=== PATIENT | female | born 1995 | race Caucasian/White ===

== ENCOUNTER 2019-07-22 09:38 | Emergency (ER) | payer OTHER, MEDICAID, SELFPAY ==
--- NOTE | 2019-07-22 09:55 | DI.RAD.S_ITS ---
PROCEDURE: XR CHEST 1V INDICATIONS: chest pain TECHNIQUE: One view of the chest was acquired. COMPARISON: None. FINDINGS: Surgical changes and devices: None. Lungs and pleura: There are indistinct peripheral opacities in the left lung base. No pleural effusions or pneumothorax. Mediastinum: Mediastinal contours appear normal. Heart size is normal. Bones and chest wall: No suspicious bony lesions. Overlying soft tissues appear unremarkable. IMPRESSION: 1. Indistinct peripheral left basilar opacities are nonspecific but suggestive of pneumonia. Dictated by: Sudarshan Lomax M.D. on 07/22/2019 at 10:08 Approved by: Sudarshan Lomax M.D. on 07/22/2019 at 10:09
[2019-07-22 09:57] VITALS: BP 120/89; PULSE 124; RESP 22; TEMP 37.1; O2SAT 99; BMI 22.1
--- NOTE | 2019-07-22 10:08 | ED_ITS ---
HPI - Chest Pain General Chief Complaint: Chest Pain Stated Complaint: Pain in lt side Time Seen by Provider: 07/22/19 10:08 Source: patient Mode of arrival: ambulatory Limitations: no limitations History of Present Illness HPI narrative: This is a 24-year-old female who comes to the emergency department with complaint of left-sided chest pain that radiates a little bit towards her abdomen. Patient has not had any known fevers. She has had a little bit chills but states she feels like she is going to get ?dope sick soon? she has been using methamphetamines and injecting heroin recently. Patient has not felt short of breath. She has not had any nausea or vomiting. She has not had any diarrhea or constipation, she denies any new urinary issues but states she has been told she has bladder infections in the past. She denies any other medical issues but does have some chronic low back issues. Patient denies any prior surgeries. Denies any allergies to medications. Related Data Previous Rx's Medication Instructions Recorded doxycycline hyclate 100 mg PO BID #14 tab 07/22/19 Allergies Allergy/AdvReac Type Severity Reaction Status Date / Time No Known Drug Allergies Allergy Verified 07/22/19 10:01 Review of Systems Review of Systems ROS Unobtainable: All systems reviewed & are unremarkable except as noted in HPI and below Constitutional Constitutional: Denies chills, Denies fever(s), Denies lethargy, Denies malaise and Denies weakness Cardiovascular Cardiovascular: Reports chest pain, Denies diaphoresis, Denies syncope, Denies rapid heart rate, Denies irregular heart rhythm, Denies lightheadedness, Denies radiating jaw, neck or arm pain, Denies palpitations, Denies dyspnea, Denies dyspnea on exertion and Denies orthopnea Respiratory Respiratory: Denies change in phlegm color, Denies chest congestion, Denies cough, Denies dyspnea, Denies dyspnea on exertion and Denies wheezing Gastrointestinal Gastrointestinal: Denies abdominal pain, Denies change in bowel habits, Denies diarrhea, Denies nausea and Denies vomiting Genitourinary Genitourinary: Denies hematuria, Reports urinary frequency, Denies flank pain, Denies urinary incontinence, Denies urinary hesitancy and Denies urinary urgency Musculoskeletal Musculoskeletal: Denies back pain Integumentary/Breasts Skin/Breast: Denies non-healing lesions, Denies rash and Denies other (abscess) Neurologic Neurologic: Denies syncope and Denies weakness Endocrine Endocrine: Denies palpitations Allergic/Immunologic Allergic/Immunologic: Denies wheezing [facility] Social History Smoking Status: Current every day smoker Social History Smoking Status: Current every day smoker Exam Narrative Exam Narrative: GENERAL: Alert and oriented x three, thin female in no acute distress. HEENT: Head normocephalic, atraumatic, EOMI, pupils reactive, face symmetric, moist mucous membranes NECK: Supple, full range of motion CARDIOVASCULAR: Regular rate and rhythm without murmurs, rubs or gallops. No JVD. RESPIRATORY: Breath sounds equal bilaterally, no wheezes rales or rhonchi. ABDOMEN: Soft, nontender. Normoactive bowel sounds all 4 quadrants. No guarding or rebound, rigidity, no mass : No CVA tenderness EXTREMITIES: Normal range of motion, no clubbing or edema. Neurovascularly intact NEUROLOGICAL: Cranial nerves II through XII grossly intact. Moving all extremities SKIN: Warm, dry, no petechiae, no rashes. Patient has several areas of scabbing on her face and upper extremities, there is no erythema or signs of infection surrounding. No Janeway lesions, no Osler nodes. Initial Vital Signs Initial Vital Signs: Vital Signs Temperature 98.7 F 07/22/19 09:57 Pulse Rate 124 H 07/22/19 09:57 Respiratory Rate 22 07/22/19 09:57 Blood Pressure 120/89 07/22/19 09:57 Pulse Oximetry 99 07/22/19 09:57 Course Orders Ordered: ED Orders 07/22/19 11:20 Lactate (Lactic Acid) Stat 07/22/19 12:40 Blood Culture Stat Discontinued Medications Doxycycline Hyclate (Vibramycin) 100 mg PO NOW ONE Stop: 07/22/19 11:52 Last Admin: 07/22/19 12:06 Dose: 100 mg Documented by: CLIFFORD Ketorolac Tromethamine (Toradol) 30 mg IM NOW ONE Stop: 07/22/19 12:14 Last Admin: 07/22/19 12:46 Dose: 30 mg Documented by: CLIFFORD Vital Signs Vital signs: Vital Signs - 8 hr 07/22/19 11:44 07/22/19 12:30 07/22/19 12:58 Temperature Pulse Rate 107 H 113 H 112 H Respiratory Rate 19 13 16 Blood Pressure Blood Pressure [Left Arm] 116/65 103/62 103/62 Pulse Oximetry 100 99 97 07/22/19 13:29 Temperature 98.8 F Pulse Rate 99 H Respiratory Rate 18 Blood Pressure 109/64 Blood Pressure [Left Arm] Pulse Oximetry 99 MDM - Chest Pain Lab Data Attestation: I reviewed the patient's lab results. Result diagrams: 07/22/19 10:08 07/22/19 10:08 Labs: Lab Results 07/22/19 07/22/19 07/22/19 Range/Units 10:08 10:08 10:08 WBC 11.1 H (4.5-11.0) X10^3/uL RBC 4.47 (4.0-5.2) X10^6/uL Hgb 12.0 (12.0-16.0) g/dL Hct 35.5 L (36-46) % MCV 79.5 L (80-100) fL MCH 26.8 (26-34) PG MCHC 33.8 (30-36) % RDW 16.2 H (11.6-14.8) % Plt Count 241 (150-400) X10^3/uL Neut % (Auto) 76.2 H (50-75) % Lymph % (Auto) 16.8 L (25-40) % Hardin % (Auto) 6.3 (3-14) % Eos % (Auto) 0.2 L (2-4) % Baso % (Auto) 0.5 (0-2) % Neut # (Auto) 8500 H (3800-7919) /uL Lymph # (Auto) 1900 (5648-9563) /uL Hardin # (Auto) 700 (0-900) /uL Eos # (Auto) 0 (0-450) /uL Baso # (Auto) 100 (0-100) /uL PT 13.7 H (10.1-12.7) SECONDS INR 1.2 (0.9-1.3) APTT 37 H (26.4-36.2) SECONDS Sodium 140 (137-145) mmol/L Potassium 3.6 (3.4-5.1) mmol/L Chloride 101 (98-107) mmol/L Carbon Dioxide 30 (22-32) mmol/L BUN 12 (7-17) mg/dL Creatinine 0.60 (0.52-1.04) mg/dL Estimated GFR > 60.0 (>60) mL/min BUN/Creatinine Ratio 20.0 (6-22) Glucose 108 H (70-100) mg/dL Lactate (0.7-2.1) mmol/L Calcium 9.2 (8.4-10.2) mg/dL Total Bilirubin 0.4 (0.2-1.3) mg/dL AST 17 (14-36) IU/L ALT < 6 L (9-52) IU/L Alkaline Phosphatase 77 (38-126) U/L Total Creatine Kinase 26 L (30-135) U/L CK-MB (CK-2) TNP CK-MB (CK-2) Rel Index TNP Troponin I < 0.012 (0.01-0.034) ng/mL Total Protein 8.3 H (6.3-8.2) g/dL Albumin 4.2 (3.5-5.0) g/dL Globulin 4.1 (1.7-4.1) g/dL Albumin/Globulin Ratio 1.0 (1.0-2.8) Lipase 34 (23-300) U/L 07/22/19 Range/Units 11:20 WBC (4.5-11.0) X10^3/uL RBC (4.0-5.2) X10^6/uL Hgb (12.0-16.0) g/dL Hct (36-46) % MCV (80-100) fL MCH (26-34) PG MCHC (30-36) % RDW (11.6-14.8) % Plt Count (150-400) X10^3/uL Neut % (Auto) (50-75) % Lymph % (Auto) (25-40) % Hardin % (Auto) (3-14) % Eos % (Auto) (2-4) % Baso % (Auto) (0-2) % Neut # (Auto) (6834-5543) /uL Lymph # (Auto) (8706-8011) /uL Hardin # (Auto) (0-900) /uL Eos # (Auto) (0-450) /uL Baso # (Auto) (0-100) /uL PT (10.1-12.7) SECONDS INR (0.9-1.3) APTT (26.4-36.2) SECONDS Sodium (137-145) mmol/L Potassium (3.4-5.1) mmol/L Chloride (98-107) mmol/L Carbon Dioxide (22-32) mmol/L BUN (7-17) mg/dL Creatinine (0.52-1.04) mg/dL Estimated GFR (>60) mL/min BUN/Creatinine Ratio (6-22) Glucose (70-100) mg/dL Lactate 1.6 (0.7-2.1) mmol/L Calcium (8.4-10.2) mg/dL Total Bilirubin (0.2-1.3) mg/dL AST (14-36) IU/L ALT (9-52) IU/L Alkaline Phosphatase (38-126) U/L Total Creatine Kinase (30-135) U/L CK-MB (CK-2) CK-MB (CK-2) Rel Index Troponin I (0.01-0.034) ng/mL Total Protein (6.3-8.2) g/dL Albumin (3.5-5.0) g/dL Globulin (1.7-4.1) g/dL Albumin/Globulin Ratio (1.0-2.8) Lipase (23-300) U/L Imaging Data Chest x-ray: Radiologist's impression: [address] [address] XRay Report Signed Patient: Serg Haro [facility]#: [id number] : 1995Acct:[id number] Age/Sex: / FDate of Service: 07/22/19 Loc: ED Accession Number: [id number] Procedure: XR chest 1V Ordering Provider: Valeria Thorpe D.O. PROCEDURE: XR CHEST 1V INDICATIONS: chest pain TECHNIQUE: One view of the chest was acquired. COMPARISON: None. FINDINGS: Surgical changes and devices: None. Lungs and pleura: There are indistinct peripheral opacities in the left lung base. No pleural effusions or pneumothorax. Mediastinum: Mediastinal contours appear normal. Heart size is normal. Bones and chest wall: No suspicious bony lesions. Overlying soft tissues appear unremarkable. IMPRESSION: 1. Indistinct peripheral left basilar opacities are nonspecific but suggestive of pneumonia. Dictated by: Sudarshan Lomax M.D. on 07/22/2019 at 10:08 Approved by: Sudarshan Lomax M.D. on 07/22/2019 at 10:09 ECG Data Attestation: I personally reviewed and interpreted this ECG as follows: Interpretation: Sinus rhythm with a rate of 79 P are 152 QRS 85 and QTC of [address] changes. MDM Narrative Medical decision making narrative: Discussed with patient shows possible pneumonia, she is very mildly elevated white count of 11, she has a RDW of 16.2 with neutrophils at 76%. CMP shows a glucose of 108 with normal electrolytes and renal function, normal lactate, troponin is negative with normal LFTs and lipase. Discussed with patient she could potentially have pneumonia will go ahead and treat her with antibiotics. She does not have any obvious exam fin dings for an endocarditis but does have some chest pain and we discussed getting blood cultures as a precaution. Patient did not want wait around for urine sample. Her heart rate is improving while she is here, she has been afebrile. We discussed that we will contact her if there is any changes with her blood cultures. Patient states that she did leave us a good phone number. Discharge Plan Departure Patient Disposition: Home Clinical Impression: Pneumonia Discharge Date/Time: 07/22/19 13:29 Instructions: DI for Pneumonia -- Adult Activity Restrictions/Additional Instructions: Follow up with primary care in the next 3-5 days for recheck. Blood cultures were sent today, these take 24-48 hours to return. You should expect a phone call if they are positive. Take antibiotics until gone, there is a coupon included to assist to financially. You may take ibuprofen up to 800 mg every 8 hours as needed for pain, you may also take Tylenol up to a 1000 mg every 8 hours as needed for pain Make sure drinking plenty of fluids. Return to the emergency department if her having worsening symptoms, lightheadedness, passing out, worsening chest pain, shortness of breath, persistent vomiting, black or bloody stools or other new or concerning symptoms. Prescriptions: New doxycycline hyclate 100 mg tablet 100 mg PO BID Qty: 14 RF: 0
[2019-07-22 10:18] LABS: Add Manual Diff / Slide Review NO; Basophils Absolute Auto 100 /uL (0-100); Basophils Percent Auto 0.5 % (0-2); Eosinophils Absolute Auto 0 /uL (0-450); Eosinophils Percent Auto 0.2 % (2-4); Hematocrit 35.5 % (36-46); Lymphocytes Absolute Auto 1900 /uL (1100-4500); Lymphocytes Percent Auto 16.8 % (25-40); Mean Corpuscular HGB Conc 33.8 % (30-36); Mean Corpuscular Hemoglobin 26.8 PG (26-34); Mean Corpuscular Volume 79.5 fL (80-100); Monocytes Absolute Auto 700 /uL (0-900); Monocytes Percent Auto 6.3 % (3-14); Neutrophils Absolute Auto 8500 /uL (1500-7000); Neutrophils Percent Auto 76.2 % (50-75); Platelet Count 241 X10^3/uL (150-400); Red Blood Cell Count 4.47 X10^6/uL (4.0-5.2); Red Cell Distribution Width 16.2 % (11.6-14.8); White Blood Cell Count 11.1 X10^3/uL (4.5-11.0)
[2019-07-22 10:24] LABS: INR 1.2 (0.9-1.3); Prothrombin Time 13.7 SECONDS (10.1-12.7)
[2019-07-22 10:26] LABS: PTT Partial Thromboplastin Tim 37 SECONDS (26.4-36.2)
[2019-07-22 10:29] LABS: Albumin 4.2 g/dL (3.5-5.0); Alkaline Phosphatase 77 U/L (38-126); Aspartate Aminotransferase 17 IU/L (14-36); Bilirubin Total 0.4 mg/dL (0.2-1.3); Blood Urea Nitrogen 12 mg/dL (7-17); Calcium 9.2 mg/dL (8.4-10.2); Carbon Dioxide 30 mmol/L (22-32); Chloride 101 mmol/L (98-107); Creatine Kinase 26 U/L (30-135); Estimated Glomerular Filt Rate > 60.0 mL/min (>60); Globulin 4.1 g/dL (1.7-4.1); Glucose 108 mg/dL (70-100); HEMOLYSIS < 15 (0-50); Lipase 34 U/L (23-300); Potassium 3.6 mmol/L (3.4-5.1); Sodium 140 mmol/L (137-145); Total Protein 8.3 g/dL (6.3-8.2)
[2019-07-22 10:30] VITALS: BP 114/70; PULSE 114; RESP 22; O2SAT 99
[2019-07-22 10:32] LABS: Alanine Aminotransferase < 6 IU/L (9-52)
[2019-07-22 10:40] LABS: Troponin I < 0.012 ng/mL (0.01-0.034)
--- NOTE | 2019-07-22 11:41 | PC.NURSE ---
pt used meth at 0600 before arriving to [facility]. used heroin iv at 11pm last night.
[2019-07-22 11:44] VITALS: BP 116/65; PULSE 107; RESP 19; O2SAT 100
[2019-07-22] MEDS: DOXYCYCLINE HYCLATE 100 MG TABLET PO (12:06)
[2019-07-22 12:24] LABS: Lactate (Lactic Acid) 1.6 mmol/L (0.7-2.1)
[2019-07-22 12:30] VITALS: BP 103/62; PULSE 113; RESP 13; O2SAT 99
[2019-07-22] MEDS: KETOROLAC 60 MG/2 ML VIAL 30 MG IM (12:46)
[2019-07-22 12:58] VITALS: BP 103/62; PULSE 112; RESP 16; O2SAT 97
[2019-07-22 13:29] VITALS: BP 109/64; PULSE 99; RESP 18; TEMP 37.1; O2SAT 99
[2019-07-24 10:45] LABS: Acinetobacter baumannii Not Detected (Not Detect); Candida albicans Not Detected (Not Detect); Candida glabrata Not Detected (Not Detect); Candida krusei Not Detected (Not Detect); Candida parapsilosis Not Detected (Not Detect); Candida tropicalis Not Detected (Not Detect); E. coli Not Detected (Not Detect); Enterobacter cloacae complex Not Detected (Not Detect); Enterobacteriaceae species Not Detected (Not Detect); Enterococcus species Not Detected (Not Detect); Haemophilus influenzae Not Detected (Not Detect); Listeria monocytogenes Not Detected (Not Detect); Neisseria meningitidis Not Detected (Not Detect); Proteus species Not Detected (Not Detect); Pseudomonas aeruginosa Not Detected (Not Detect); Serratia marcescens Not Detected (Not Detect); Staphylococcus species Not Detected (Not Detect); Streptococcus agalactiae (Gr B Not Detected (Not Detect); Streptococcus pneumonia Not Detected (Not Detect); Streptococcus pyogenes (Gr A) Not Detected (Not Detect); Streptococcus species Detected (Not Detect)
== END 2019-07-22 13:29 | disposition home or self-care (01) ==
PROVIDERS: Emergency Provider Emergency Medicine
DX: J18.9 Pneumonia, unspecified organism (principal)
CPT/HCPCS: 36415; 71045; 80053; 82550; 83605; 83690; 84484; 85025; 85610; 85730; 87040; 87077; 87150; 87205; 93005; 96372; 99283; 99285; J1885

== ENCOUNTER 2019-11-12 13:53 | Emergency (ER) | payer OTHER, MEDICAID, SELFPAY ==
[2019-11-12 13:55] VITALS: BP 113/70; PULSE 129; RESP 24; TEMP 36.5; BMI 18.8
--- NOTE | 2019-11-12 14:02 | DI.RAD.S_ITS ---
PROCEDURE: XR CHEST 2V INDICATIONS: worsening pneumonia TECHNIQUE: 2 views of the chest were acquired. COMPARISON: [facility], CR, XR CHEST 1V, 07/22/2019, 9:58. FINDINGS: Surgical changes and devices: None. Lungs and pleura: A moderate-sized area of consolidation is identified within the right lung. No effusion or pneumothorax is evident. Mediastinum: Mediastinal contours are normal. Heart size is normal. Bones and chest wall: No suspicious bony abnormalities. Soft tissues appear unremarkable. IMPRESSION: Right basilar pneumonia. Dictated by: Sudarshan Ac M.D. on 11/12/2019 at 13:30 Approved by: Sudarshan Ac M.D. on 11/12/2019 at 13:34
[2019-11-12] MEDS: SODIUM CHLORIDE 0.9% 1,000 ML 1000 ML IV ×2 (14:17→15:46)
--- NOTE | 2019-11-12 14:19 | PC.NURSE ---
Discussed w/ patient her recent stopping of iv heroin and meth. Pt states she has been clean for 1-2 weeks. No s/s of active withdrawl at this time. States she has significant life stressors w/ boyfriend going to [employer] for > 1 years. Would like some resources. [facility] [facility] [employer] consulted.
[2019-11-12 14:21] LABS: Add Manual Diff / Slide Review NO; Basophils Absolute Auto 100 /uL (0-100); Basophils Percent Auto 0.5 % (0-2); Eosinophils Absolute Auto 100 /uL (0-450); Eosinophils Percent Auto 0.6 % (2-4); Hematocrit 30.1 % (36-46); Hemoglobin 9.7 g/dL (12.0-16.0); Lymphocytes Absolute Auto 3100 /uL (1100-4500); Lymphocytes Percent Auto 20.6 % (25-40); Mean Corpuscular HGB Conc 32.3 % (30-36); Mean Corpuscular Hemoglobin 23.6 PG (26-34); Mean Corpuscular Volume 73.1 fL (80-100); Monocytes Absolute Auto 1100 /uL (0-900); Monocytes Percent Auto 7.6 % (3-14); Neutrophils Absolute Auto 10500 /uL (1500-7000); Neutrophils Percent Auto 70.7 % (50-75); Platelet Count 482 X10^3/uL (150-400); Red Blood Cell Count 4.12 X10^6/uL (4.0-5.2); Red Cell Distribution Width 18.8 % (11.6-14.8); White Blood Cell Count 14.8 X10^3/uL (4.5-11.0)
[2019-11-12 14:29] LABS: INR 1.3 (0.9-1.3); Prothrombin Time 15.1 SECONDS (10.1-12.7)
[2019-11-12 14:31] LABS: PTT Partial Thromboplastin Tim 38 SECONDS (26.4-36.2)
[2019-11-12 14:32] LABS: Lactate (Lactic Acid) 1.4 mmol/L (0.7-2.1)
[2019-11-12 14:36] LABS: Alanine Aminotransferase 16 IU/L (<35); Albumin 3.7 g/dL (3.5-5.0); Albumin Globulin Ratio 0.8 (1.0-2.8); Alkaline Phosphatase 115 U/L (38-126); Aspartate Aminotransferase 22 IU/L (14-36); BUN Creatinine Ratio 33.3 (6-22); Bilirubin Total 0.3 mg/dL (0.2-1.3); Blood Urea Nitrogen 20 mg/dL (7-17); Carbon Dioxide 29 mmol/L (22-32); Chloride 103 mmol/L (98-107); Estimated Glomerular Filt Rate > 60.0 mL/min (>60); Globulin 4.6 g/dL (1.7-4.1); Glucose 98 mg/dL (70-100); HEMOLYSIS < 15 (0-50); Lipase 47 U/L (23-300); Potassium 3.8 mmol/L (3.4-5.1); Sodium 140 mmol/L (137-145); Total Protein 8.3 g/dL (6.3-8.2)
--- NOTE | 2019-11-12 14:37 | ED_ITS ---
HPI - URI/Sore Throat General Chief Complaint: Upper Respiratory Symptoms Stated Complaint: pneumonia Time Seen by Provider: 11/12/19 14:20 Source: patient Mode of arrival: Ambulatory Limitations: no limitations History of Present Illness HPI Narrative: Patient is a 24-year-old female with recent pneumonia treated w ith amoxicillin finished 1 week ago she states that the cough has gotten worse. She continues to have some body ache. She does admit to smoking methamphetamine, heroin and tobacco her last use was methamphetamine last. She has had some body aches. She also says that she is just getting over a UTI. She denies any shortness of breath or heart palpitations she is noted to be tachycardic in the emergency department. Related Data Previous Rx's Medication Instructions Recorded levofloxacin [Levaquin] 750 mg PO DAILY #5 tab 11/12/19 Allergies Allergy/AdvReac Type Severity Reaction Status Date / Time No Known Drug Allergies Allergy Verified 11/12/19 14:01 Review of Systems Review of Systems Narrative: GENERAL: Denies chills, fatigue, malaise, fever, sweats, travel HEENT: Denies sinus pain, ear pain, sore throat, difficulty swallowing, neck pain RESPIRATORY: See HPI CARDIOVASCULAR: Denies chest pain, palpitations, orthopnea, edema GASTROINTESTINAL: Denies nausea, vomiting, abdominal pain, diarrhea, constipation, melena. : Denies dysuria, frequency, incontinence, hematuria, urinary retention, flank pain. MUSCULOSKELETAL: Denies weakness, joint pain, or bony pain SKIN: No rash, no erythema, no pruritus NEUROLOGIC: Denies weakness, dizziness, headache, numbness, change in speech, confusion PSYCHIATRIC: No concerning psychosocial issues. 12 point review of systems is negative except for those stated above and HPI Patient History Medical History Patient denies medical problems (Acute) Social History Smoking Status: Current every day smoker substance use type: heroin and methamphetamine Smoking Status: Current every day smoker alcohol intake frequency: 0-2 drinks per day Substance Use Type: marijuana Exam Initial Vital Signs Initial Vital Signs: Vital Signs Temperature 97.7 F 11/12/19 13:55 Pulse Rate 129 H 11/12/19 13:55 Respiratory Rate 24 11/12/19 13:55 Blood Pressure 113/70 11/12/19 13:55 GENERAL: Thin young female and in no acute distress. HEENT: Head atraumatic,EOMI, pupils reactive, face symmetric, moist mucous membranes CARDIOVASCULAR: Tachycardic regular no murmurs RESPIRATORY: Breath sounds equal bilaterally, no wheezes rales or rhonchi. ABDOMEN: Soft, nontender. Normoactive bowel sounds all 4 quadrants. No guarding or rebound. EXTREMITIES: Normal range of motion, no clubbing or edema. Neurovascularly intact NEUROLOGICAL: Alert and oriented x4.Normal gait and speech. SKIN: Warm, dry, no laceration, no petechiae, no rashes or lesions. Course Orders Ordered: ED Orders 11/12/19 14:02 XR chest 2V Stat EKG-12 Lead Stat RT Consult Eval and Treat Now 11/12/19 14:12 Complete Blood Count AUTO DIFF Stat Comprehensive Metabolic Panel Stat Lactate (Lactic Acid) Stat Lipase Stat Partial Thromboplastin Time Stat Procalcitonin Stat Prothrombin Time INR Stat 11/12/19 14:18 Consult to [facility] - Hand Stoner Stat 11/12/19 14:38 Blood Culture Stat 11/12/19 14:48 Influenza A & B (PCR) Stat 11/12/19 16:15 Urine Culture Stat Urine Drug Screen, Rapid Stat Urine Microscopic Stat Discontinued Medications Sodium Chloride (Normal Saline 0.9%) 1,000 mls @ 1,000 mls/hr IV BOLUS ONE Stop: 11/12/19 15:01 Last Infusion: 11/12/19 15:22 Dose: 0 mls/hr Documented by: Admin: 11/12/19 14:17 Dose: 1,000 mls/hr Documented by: JUAN Sodium Chloride (Normal Saline 0.9%) 1,000 mls @ 1,000 mls/hr IV BOLUS ONE Stop: 11/12/19 16:25 Last Infusion: 11/12/19 16:45 Dose: 0 mls/hr Documented by: Admin: 11/12/19 15:46 Dose: 1,000 mls/hr Documented by: AMARA Levofloxacin (Levaquin) 750 mg PO NOW ONE Stop: 11/12/19 16:53 Last Admin: 11/12/19 17:04 Dose: 750 mg Documented by: SCANAPO Vital Signs Vital signs: Vital Signs - 8 hr 11/12/19 13:55 11/12/19 14:52 11/12/19 16:37 Temperature 97.7 F Pulse Rate 129 H 115 H 113 H Respiratory Rate 24 20 Blood Pressure 113/70 Blood Pressure [Right Arm] 126/89 Pulse Oximetry 100 100 11/12/19 16:46 11/12/19 17:05 Temperature Pulse Rate 111 H Respiratory Rate Blood Pressure 109/60 Blood Pressure [Right Arm] 96/47 L Pulse Oximetry MDM - URI/Sore Throat Lab Data Attestation: I reviewed the patient's lab results. Result diagrams: 11/12/19 14:12 11/12/19 14:12 Labs: Lab Results 11/12/19 11/12/19 11/12/19 Range/Units 14:12 14:12 14:12 WBC 14.8 H (4.5-11.0) X10^3/uL RBC 4.12 (4.0-5.2) X10^6/uL Hgb 9.7 L (12.0-16.0) g/dL Hct 30.1 L (36-46) % MCV 73.1 L (80-100) fL MCH 23.6 L (26-34) PG MCHC 32.3 (30-36) % RDW 18.8 H (11.6-14.8) % Plt Count 482 H (150-400) X10^3/uL Neut % (Auto) 70.7 (50-75) % Lymph % (Auto) 20.6 L (25-40) % [place] % (Auto) 7.6 (3-14) % Eos % (Auto) 0.6 L (2-4) % Baso % (Auto) 0.5 (0-2) % Neut # (Auto) 15244 H (6395-3173) /uL Lymph # (Auto) 3100 (3817-2942) /uL [place] # (Auto) 1100 H (0-900) /uL Eos # (Auto) 100 (0-450) /uL Baso # (Auto) 100 (0-100) /uL PT 15.1 H (10.1-12.7) SECONDS INR 1.3 (0.9-1.3) APTT 38 H (26.4-36.2) SECONDS Sodium (137-145) mmol/L Potassium (3.4-5.1) mmol/L Chloride (98-107) mmol/L Carbon Dioxide (22-32) mmol/L BUN (7-17) mg/dL Creatinine (0.52-1.04) mg/dL Estimated GFR (>60) mL/min BUN/Creatinine Ratio (6-22) Glucose (70-100) mg/dL Lactate (0.7-2.1) mmol/L Calcium (8.4-10.2) mg/dL Total Bilirubin (0.2-1.3) mg/dL AST (14-36) IU/L ALT (<35) IU/L Alkaline Phosphatase (38-126) U/L Total Protein (6.3-8.2) g/dL Albumin (3.5-5.0) g/dL Globulin (1.7-4.1) g/dL Albumin/Globulin Ratio (1.0-2.8) Lipase (23-300) U/L Procalcitonin < 0.05 (<0.5) ng/mL Urine RBC (0-5/HPF) Urine WBC (0-5/HPF) Ur Squamous Epith Cells (0-5/HPF) Ur Renal Epithelial Cell (0-1/HPF) Amorphous Sediment Urine Bacteria (None) Urine Mucus (Negative) Ur Culture Indicated? U Morph 300 ng/mL cutoff (Negative) Ur Oxycodone Screen (Negative) Urine Methadone Screen (Negative) Ur Barbiturates Screen (Negative) U Tricyclic Antidepress (Negative) Ur Phencyclidine Scrn (Negative) Ur Amphetamines Screen (Negative) U Methamphetamines Scrn (Negative) Ur MDMA Scrn (Ecstasy) (Negative) U Benzodiazepines Scrn (Negative) Urine Cocaine Screen (Negative) U Marijuana (THC) Screen (Negative) Influenza A (RT-PCR) (NEGATIVE) Influenza B (RT-PCR) (NEGATIVE) 11/12/19 11/12/19 11/12/19 Range/Units 14:12 14:12 14:48 WBC (4.5-11.0) X10^3/uL RBC (4.0-5.2) X10^6/uL Hgb (12.0-16.0) g/dL Hct (36-46) % MCV (80-100) fL MCH (26-34) PG MCHC (30-36) % RDW (11.6-14.8) % Plt Count (150-400) X10^3/uL Neut % (Auto) (50-75) % Lymph % (Auto) (25-40) % [place] % (Auto) (3-14) % Eos % (Auto) (2-4) % Baso % (Auto) (0-2) % Neut # (Auto) (7243-7821) /uL Lymph # (Auto) (3111-0126) /uL [place] # (Auto) (0-900) /uL Eos # (Auto) (0-450) /uL Baso # (Auto) (0-100) /uL PT (10.1-12.7) SECONDS INR (0.9-1.3) APTT (26.4-36.2) SECONDS Sodium 140 (137-145) mmol/L Potassium 3.8 (3.4-5.1) mmol/L Chloride 103 (98-107) mmol/L Carbon Dioxide 29 (22-32) mmol/L BUN 20 H (7-17) mg/dL Creatinine 0.60 (0.52-1.04) mg/dL Estimated GFR > 60.0 (>60) mL/min BUN/Creatinine Ratio 33.3 H (6-22) Glucose 98 (70-100) mg/dL Lactate 1.4 (0.7-2.1) mmol/L Calcium 9.0 (8.4-10.2) mg/dL Total Bilirubin 0.3 (0.2-1.3) mg/dL AST 22 (14-36) IU/L ALT 16 (<35) IU/L Alkaline Phosphatase 115 (38-126) U/L Total Protein 8.3 H (6.3-8.2) g/dL Albumin 3.7 (3.5-5.0) g/dL Globulin 4.6 H (1.7-4.1) g/dL Albumin/Globulin Ratio 0.8 L (1.0-2.8) Lipase 47 (23-300) U/L Procalcitonin (<0.5) ng/mL Urine RBC (0-5/HPF) Urine WBC (0-5/HPF) Ur Squamous Epith Cells (0-5/HPF) Ur Renal Epithelial Cell (0-1/HPF) Amorphous Sediment Urine Bacteria (None) Urine Mucus (Negative) Ur Culture Indicated? U Morph 300 ng/mL cutoff (Negative) Ur Oxycodone Screen (Negative) Urine Methadone Screen (Negative) Ur Barbiturates Screen (Negative) U Tricyclic Antidepress (Negative) Ur Phencyclidine Scrn (Negative) Ur Amphetamines Screen (Negative) U Methamphetamines Scrn (Negative) Ur MDMA Scrn (Ecstasy) (Negative) U Benzodiazepines Scrn (Negative) Urine Cocaine Screen (Negative) U Marijuana (THC) Screen (Negative) Influenza A (RT-PCR) Flu a negative (NEGATIVE) Influenza B (RT-PCR) Flu b negative (NEGATIVE) 11/12/19 11/12/19 Range/Units 16:15 16:15 WBC (4.5-11.0) X10^3/uL RBC (4.0-5.2) X10^6/uL Hgb (12.0-16.0) g/dL Hct (36-46) % MCV (80-100) fL MCH (26-34) PG MCHC (30-36) % RDW (11.6-14.8) % Plt Count (150-400) X10^3/uL Neut % (Auto) (50-75) % Lymph % (Auto) (25-40) % [place] % (Auto) (3-14) % Eos % (Auto) (2-4) % Baso % (Auto) (0-2) % Neut # (Auto) (2080-9746) /uL Lymph # (Auto) (6767-5941) /uL [place] # (Auto) (0-900) /uL Eos # (Auto) (0-450) /uL Baso # (Auto) (0-100) /uL PT (10.1-12.7) SECONDS INR (0.9-1.3) APTT (26.4-36.2) SECONDS Sodium (137-145) mmol/L Potassium (3.4-5.1) mmol/L Chloride (98-107) mmol/L Carbon Dioxide (22-32) mmol/L BUN (7-17) mg/dL Creatinine (0.52-1.04) mg/dL Estimated GFR (>60) mL/min BUN/Creatinine Ratio (6-22) Glucose (70-100) mg/dL Lactate (0.7-2.1) mmol/L Calcium (8.4-10.2) mg/dL Total Bilirubin (0.2-1.3) mg/dL AST (14-36) IU/L ALT (<35) IU/L Alkaline Phosphatase (38-126) U/L Total Protein (6.3-8.2) g/dL Albumin (3.5-5.0) g/dL Globulin (1.7-4.1) g/dL Albumin/Globulin Ratio (1.0-2.8) Lipase (23-300) U/L Procalcitonin (<0.5) ng/mL Urine RBC 1-5/hpf (0-5/HPF) Urine WBC 30-100/hpf H (0-5/HPF) Ur Squamous Epith Cells 1-5 /hpf (0-5/HPF) Ur Renal Epithelial Cell 0-1/hpf (0-1/HPF) Amorphous Sediment 1+ Urine Bacteria Many (>30) H (None) Urine Mucus 2+ H (Negative) Ur Culture Indicated? Specimen cultured U Morph 300 ng/mL cutoff Negative (Negative) Ur Oxycodone Screen Negative (Negative) Urine Methadone Screen Negative (Negative) Ur Barbiturates Screen Negative (Negative) U Tricyclic Antidepress Negative (Negative) Ur Phencyclidine Scrn Negative (Negative) Ur Amphetamines Screen Positive H (Negative) U Methamphetamines Scrn Positive H (Negative) Ur MDMA Scrn (Ecstasy) Negative (Negative) U Benzodiazepines Scrn Negative (Negative) Urine Cocaine Screen Negative (Negative) U Marijuana (THC) Screen Negative (Negative) Influenza A (RT-PCR) (NEGATIVE) Influenza B (RT-PCR) (NEGATIVE) Point of Care Testing Test Results Negative Urine Dip Bedside Urine Glucose Negative Bedside Urine Bilirubin - Negative Bedside Urine Ketone +/- 5 Urine Specific Vernal 1.020 Bedside Urine Occult Blood +/- Bedside Urine pH 6.0 Bedside Urine Protein + 30 Bedside Urine Urobilinogen +/- 1mg Bedside Urine Nitrite + Positive Bedside Urine Leukocytes + 70 Esterase Imaging Data Chest x-ray: Radiologist's Impression: PROCEDURE: XR CHEST 2V INDICATIONS: worsening pneumonia TECHNIQUE: 2 views of the chest were acquired. COMPARISON: [facility], CR, XR CHEST 1V, 07/22/2019, 9:58. FINDINGS: Surgical changes and devices: None. Lungs and pleura: A moderate-sized area of consolidation is identified within the right lung. No effusion or pneumothorax is evident. Mediastinum: Mediastinal contours are normal. Heart size is normal. Bones and chest wall: No suspicious bony abnormalities. Soft tissues appear unremarkable. IMPRESSION: Right basilar pneumonia. Dictated by: Sudarshan Ac M.D. on 11/12/2019 at 13:30 MDM Narrative Medical decision making narrative: Patient is in sinus tachycardia on the monitor. Her heart rate does improve with IV fluids. Previous visits do show that she is persistently tachycardic with heart rate above 100 she is positive for methamphetamine and amphetamine in her urine. She is also noted to have a UTI along with right-sided pneumonia. She overall appears well eating and drinking in the emergency department ambulating to the restroom without difficulty normal lactic acid. Will put her on Levaquin which should cover for pneumonia and UTI. She is not hypoxic, she it does not have any difficulty breathing. At this time all outpatient follow-up. Discharge Plan Departure Patient Disposition: Home Clinical Impression: Pneumonia Qualifiers: Pneumonia type: due to unspecified organism Laterality: right Lung location: lower lobe of lung Qualified Code(s): J18.9 - Pneumonia, unspecified organism UTI (urinary tract infection) Qualifiers: Urinary tract infection type: acute cystitis Hematuria presence: with hematuria Qualified Code(s): N30.01 - Acute cystitis with hematuria Discharge Date/Time: 11/12/19 17:05 Instructions: DI for Pneumonia -- Adult Activity Restrictions/Additional Instructions: *You have been diagnosed with pneumonia nad UTI *What to do: Increase fluid intake, rest, stop doing drugs *Continue to take medications as directed Levaquin 750 mg once a day for 5 days start tomorrow *Follow up with your primary care provider in 2-3 days *Return to ER if you should have increasing cough shortness of breath confusion fever not controlled or any new, worsening or concerning symptoms Prescriptions: New levofloxacin [Levaquin] 750 mg tablet 750 mg PO DAILY Qty: 5 RF: 0
--- NOTE | 2019-11-12 14:42 | CM.SWNOTE ---
Discharge Planning/Care Management REAL ESTATE ATTORNEY - Dental Chairside Assistant Assessment Start: 11/12/19 14:35 Freq: Status: Active Protocol: Document 11/12/19 14:36 DPL (Rec: 11/12/19 14:42 DPL [id number]) REAL ESTATE ATTORNEY/Dental Chairside Assistant Assessment Start date 11/12/19 Visit Start Time 02:25 End date 11/12/19 Visit End Time 02:45 Total time Care Management spent on 20 patient visit-in minutes Presenting Problem Pt presents to the ED with respiratory symptoms. 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 She also has multiple, observable superficial cuts on her arms, indicative of chronic cutting bx. Precipitating Event(s) Respiratory illness. Her boyfriend is also going to intermediate soon, which prompted her wanting mental health support. Current Behavioral Health Provider(s) None Include Facility, Provider, Ph. # Psych. Hx Mental Health and Chemical Hx chemical dependency, mental Dependency health details not known. Support System(s) Friend, boyfriend. School/Work Unemployed Orientation (Person/Place/Time) Pt is oriented X3. Affect Calm, pleasant. Thought Content - Specify/Describe Congruent and appropriate. Obsessions, Delusions, Hallucinations Thought Processes (Plmihqc-Flvazvnv-Znze Appropriate Ajthcqkg-Yxezvwmx-Gzfjctyruv- Feslsrmvozmfcz-Fbuomvd-Tzskqqsylmeg- Thought Blocking) Speech (Lamgdq-Qzgv-Igjpcdn-Rapid-Soft- Normal Loud-Pressured) Motor (Rnpmmn-Krxvepjxl-Ajqi-Other) Normal Insight (Present-Partially Present- Present Impaired) Judgement (Intact-Impaired) Intact Impulse Control (Adequate-Impaired) Intact Memory (Ey[place]ag-[place]bo[place]-Xnafcz, Intact Impaired-Intact) Concentration (Intact-Impaired) Intact Attention (Intact-Impaired) Intact Behavior (Appropriate-Inappropriate) Appropriate Suicidal Ideation (Plan) No Homicidal Ideation (Plan) No Intervention REAL ESTATE ATTORNEY provided contact and program info for [facility] in Friday. RA Plan D/C home. Pt will f/u on her own re: [facility].
[2019-11-12 14:52] VITALS: BP 126/89; PULSE 115; RESP 20; O2SAT 100
[2019-11-12 14:53] LABS: Procalcitonin < 0.05 ng/mL (<0.5)
[2019-11-12 15:31] LABS: Influenza A - CEPHEID Flu A NEGATIVE (NEGATIVE); Influenza B - CEPHEID Flu B NEGATIVE (NEGATIVE)
[2019-11-12 16:37] VITALS: PULSE 113; O2SAT 100
[2019-11-12 16:40] LABS: UR Morphine/Opiate cutoff 300 Negative (Negative); Ur Creatinine Normal (Normal); Ur Specific Gravity Normal (Normal); Urine Amphetamines Positive (Negative); Urine Barbiturates Negative (Negative); Urine Benzodiazepines Negative (Negative); Urine Cocaine Negative (Negative); Urine MDMA Negative (Negative); Urine Methadone Negative (Negative); Urine Methamphetamines Positive (Negative); Urine Oxycodone Negative (Negative); Urine Phencyclidine Negative (Negative); Urine Tetrahydrocannabinol Negative (Negative); Urine Tricyclic Antidepressant Negative (Negative); Urine pH Normal (Normal)
[2019-11-12 16:45] LABS: RBC Urine 1-5/HPF (0-5/HPF); Renal Epithelial Cells Urine 0-1/HPF (0-1/HPF); Squamous Epithelial Cell Urine 1-5 /HPF (0-5/HPF); WBC Urine 30-100/HPF (0-5/HPF)
[2019-11-12 16:46] VITALS: BP 96/47
[2019-11-12 16:46] LABS: Amorphous Sediment Urine 1+; Bacteria Urine Many (>30); Culture Indicated Urine Specimen Cultured; Mucus Urine 2+ (Negative)
[2019-11-12] MEDS: levoFLOXacin 250 MG TABLET 750 MG PO (17:04)
[2019-11-12 17:05] VITALS: BP 109/60; PULSE 111
== END 2019-11-12 17:05 | disposition home or self-care (01) ==
PROVIDERS: Emergency Provider Emergency Medicine
DX: J18.9 Pneumonia, unspecified organism (principal); N30.01 Acute cystitis with hematuria; R00.0 Tachycardia, unspecified
CPT/HCPCS: 36415; 71046; 80053; 80305; 81003; 81015; 81025; 83605; 83690; 84145; 85025; 85610; 85730; 87040; 87077; 87086; 87186; 87502; 96360; 96361; 99284; 99285